=== PATIENT | female | born 1990 | race Caucasian/White ===

== ENCOUNTER 2017-07-03 07:32 | Emergency (ER) | payer MEDICAID ==
[2017-07-03] MEDS ORDERED: Dextrose 5%-0.9% NaCl 1,000 ML IV SCH (08:00)
[2017-07-03] MEDS ORDERED: Ketorolac 30 MG/ML SDV IVPUSH SCH (08:00)
--- NOTE | 2017-07-03 08:04 | EDM.PDOC ---
ED HPI GENERAL MEDICAL PROBLEM - General Chief Complaint: Respiratory Problem Stated Complaint: COUGH/NAUSEA/DIZZY Time Seen by Provider: 07/03/17 07:59 Source of Information: Reports: Patient History Limitations: Reports: No Limitations - History of Present Illness INITIAL COMMENTS - FREE TEXT/NARRATIVE: 27-year-old female presents the ED with acute onset of illness 2-1/2 days ago with fever chills headache and initially some loose watery diarrhea which cleared within about 12 hours. She has diffuse myalgia. She's been using ibuprofen Mucinex and cough drops. Has a paroxysmal cough minimally productive. Did not have a flu shot. She denies possibility of . She's lightheaded and dizzy and very weak. Hilario poor appetite. Onset: Sudden Onset Date: 07/01/17 Duration: Day(s):, Constant Location: Reports: Chest (Paroxysmal nonproductive cough), Generalized Quality: Reports: Ache Severity: Moderate (Primarily that of headache with.diffuse myalgia.) Improves with: Reports: Medication Worsens with: Denies: None, Breathing, Cold Therapy, Heat Therapy, Immobilization, Medication, Rest, Other, Movement Context: Denies: Activity, Exercise, Lifting, Sick Contact, Trauma, Other Associated Symptoms: Reports: Chest Pain, Cough (From coughing.), Fever/Chills, Headaches, Loss of Appetite, Malaise, Shortness of Breath, Syncope, Other (Very lightheaded and dizzy when standing). 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 History: hx of deliveries, hx of herpes - Past Surgical History Female Surgical History: Reports: Tubal Ligation Social & Family History - Tobacco Use Smoking Status *Q: Never Smoker Second Hand Smoke Exposure: No - Caffeine Use Caffeine Use: Reports: Coffee, Soda - Recreational Drug Use Recreational Drug Use: No - Living Situation & Occupation Living situation: Reports: Single Occupation: Unemployed ED ROS GENERAL - Review of Systems Review Of Systems: See Below Constitutional: Reports: Fever, Malaise, Weakness, Fatigue, Diaphoresis, Decreased Appetite HEENT: Reports: No Symptoms, Throat Pain Respiratory: Reports: Shortness of Breath, Cough. Denies: Wheezing, Pleuritic Chest Pain, Sputum, Hemoptysis, Other Cardiovascular: Reports: No Symptoms Endocrine: Reports: Fatigue GI/Abdominal: Reports: Anorexia, Diarrhea (Diarrhea initial onset of illness for about 12 hours but then quit.) : Reports: No Symptoms Musculoskeletal: Reports: Muscle Pain Skin: Reports: No Symptoms Neurological: Reports: No Symptoms (Generalized myalgia.) Psychiatric: Reports: No Symptoms Hematologic/Lymphatic: Reports: No Symptoms Immunologic: Reports: No Symptoms ED EXAM, GENERAL - Physical Exam Exam: See Below Exam Limited By: No Limitations General Appearance: Alert, WD/WN, No Apparent Distress, Other (Slightly warm to palpation.) Eye Exam: Bilateral Eye: Normal Inspection Ears: Normal TMs Throat/Mouth: Normal Inspection, Normal Lips, Normal Teeth, Normal Gums, Normal Oropharynx Head: Atraumatic, Normocephalic Neck: Normal Inspection, Supple, Non-Tender, Full Range of Motion. No: Lymphadenopathy (L), Lymphadenopathy (R) Respiratory/Chest: No Respiratory Distress, Lungs Clear, Normal Breath Sounds, Chest Non-Tender Cardiovascular: Normal Peripheral Pulses, No Edema, No Murmur, No Rub, Tachycardia. No: Systolic Murmur Peripheral Pulses: 2+: Posterior Tibial (L), Posterior Tibial (R), Dorsalis Pedis (L), Dorsalis Pedis (R) GI/Abdominal: Normal Bowel Sounds, Soft, Non-Tender, No Organomegaly, No Abnormal Bruit, No Mass, Pelvis Stable Back Exam: Normal Inspection, Full Range of Motion Extremities: Normal Inspection, Normal Range of Motion, Non-Tender, Normal Capillary Refill Neurological: Alert, Oriented, CN II-XII Intact, Normal Cognition, Normal Gait Psychiatric: Normal Affect, Normal Mood Skin Exam: Warm, Dry, Intact, Normal Color, No Rash Course - Vital Signs Last Recorded V/S: Last Vital Signs Temp 37.2 C 11/30/17 07:44 Pulse 118 H 07/03/17 07:44 Resp 18 07/03/17 07:44 BP 151/81 H 07/03/17 07:44 Pulse Ox 99 07/03/17 07:44 Orthostatic Blood Pressure [ 148/80 Standing] Orthostatic Blood Pressure [ 151/86 Sitting] Orthostatic Blood Pressure [ 139/77 Supine] - Orders/Labs/Meds Orders: Active Orders 24 hr Category Date Time Status Orthostatic Vital Signs [RC] ASDIRECTED Care 07/03/17 07:59 Active Dextrose 5%-0.9% NaCl [Dextrose 5%-Normal Saline] 1,000 Med 07/03/17 08:00 Active ml IV ASDIRECTED Ketorolac [Toradol] Med 07/03/17 08:00 Active 30 mg IVPUSH ONETIME Medication Orders Dextrose/Sodium Chloride (Dextrose 5%-Normal Saline) 1,000 mls @ 999 mls/hr IV ASDIRECTED ISRRAEL Last Admin: 07/03/17 08:16 Dose: 999 mls/hr Ketorolac Tromethamine (Toradol) 30 mg IVPUSH ONETIME ISRRAEL Last Admin: 07/03/17 08:15 Dose: 30 mg Meds: Medications Generic Name Dose Route Start Last Admin Trade Name Freq PRN Reason Stop Dose Admin Dextrose/Sodium Chloride 1,000 mls @ 999 mls/hr 07/03/17 08:00 07/03/17 08:16 Dextrose 5%-Normal Saline IV 999 mls/hr ASDIRECTED ISRRAEL Administration Ketorolac Tromethamine 30 mg 07/03/17 08:00 07/03/17 08:15 Toradol IVPUSH 30 mg ONETIME ISRRAEL Administration - Radiology Interpretation Free Text/Narrative:: 27-year-old female presents the ED with a 2-1/2 day history of illness. Sudden onset of fever chills headache diffuse myalgia paroxysmal nonproductive cough. Is initially she did have some diarrhea for about 12 hours but this is since past. Left her with very poor appetite. She's lightheaded dizzy with standing. She is found to have a resting tachycardia of 120s. Afebrile at the time of my examination. Her nose and throat examination showed no definitive infective process. Does a very harsh paroxysmal cough. Clinically she is suffering from influenza. Influence a screen will be done. She appears to be mildly volume depleted. She will have an IV of D5 normal saline started to run at open. Toradol 30 mg IV for pain and myalgia relief. - Re-Assessments/Exams Free Text/Narrative Re-Assessment/Exam: 07/03/17 09:04 influenza screen came back negative. Therefore one view chest x- ray will be obtained to rule out pneumonia. 07/03/17 10:16 chest x-ray one view is also negative for any signs of pneumonia. Therefore illness appears to be viral and likely is that of parainfluenza infection. 07/03/17 10:57 patient is feeling improved after liter of IV fluids. Clinically she probably has a parainfluenza virus since influenza screen came back negative and she has many signs and symptoms of influenza. I'm going to simply treat her with Motrin 600 mg every 6 hours as needed for fever and body aches and headache. Fluids to be Gatorade Powerade and advance to soup broth and soups until feeling better. Tussionex cough syrup 5 mils every 12 hours as needed for cough relief. Expect marked improvement over the next 48 hours. If not she should be reviewed. Departure - Departure Time of Disposition: 10:58 Disposition: Home, Self-Care 01 Condition: Fair Clinical Impression: Parainfluenza virus bronchitis - Discharge Information Prescriptions: Hydrocodone/Chlorphen P-Stirex [Tussionex Pennkinetic Susp] 5 ml PO Q12H PRN # 60 ml PRN Reason: Cough relief Referrals: Katherine Grimaldo MD [Primary Care Provider] - Forms: ED Department Discharge Additional Instructions: Evaluation the emergency room today in regards to development of upper respiratory tract infection with sore throat headache generalized body ache and paroxysmal with [place] productive cough over the last 2 and half days. These are all the signs and symptoms of influenza which is beginning to hit our community. Influenza screen in you turned out to be negative today. A chest x- ray was therefore done and does not show any evidence of pneumonia. You're treated with a liter of IV fluids in the emergency room and Toradol intravenously to relieve some of the body ache and headache. It clinically you probably have the parainfluenza virus which often shows up 2 or 3 weeks before influenza. It mimics influenza but tends not to be quite as severe. Treatment is continue Motrin 600 mg every 6 hours as needed for relief of fever and body aches and headache. Diet as tolerated including plenty of fluids such as Gatorade or Powerade to maintain hydration. May use cough syrup Tussionex 5 mils every 12 hours as necessary for cough relief. He takes about a good hour to work so take a good hour before planning to go to bed. Expect marked improvement over the next 48 hours. Although cough will probably last the better part of 2 weeks. - My Orders Last 24 Hours: My Active Orders 07/03/17 07:59 Orthostatic Vital Signs [RC] ASDIRECTED 07/03/17 08:00 Dextrose 5%-0.9% NaCl [Dextrose 5%-Normal Saline] 1,000 ml IV ASDIRECTED Ketorolac [Toradol] 30 mg IVPUSH ONETIME - Assessment/Plan Last 24 Hours: My Active Orders 07/03/17 07:59 Orthostatic Vital Signs [RC] ASDIRECTED 07/03/17 08:00 Dextrose 5%-0.9% NaCl [Dextrose 5%-Normal Saline] 1,000 ml IV ASDIRECTED Ketorolac [Toradol] 30 mg IVPUSH ONETIME
[2017-07-03] MEDS ORDERED: Ketorolac 30 MG/ML SDV ONE (08:12)
[2017-07-03] MEDS ORDERED: Dextrose 5%-0.9% NaCl 1,000 ML ONE (08:13)
--- NOTE | 2017-07-03 10:08 | CR ---
Chest: Portable view of the chest was obtained. Comparison: No prior chest x-ray. Heart size and mediastinum are normal. Lungs are clear. Bony structures are grossly intact. Impression: 1. Nothing acute is identified on portable chest x-ray. Diagnostic code #1
[2017-07-03 11:16] VITALS: BP 122/74
== END 2017-07-03 11:10 | disposition home or self-care (01) ==
LOC: JD.ED 07:32
DX: J20.4 Acute bronchitis due to parainfluenza virus (principal); Z91.030 Bee allergy status
CPT/HCPCS: 71010; 87804; 96361; 96374; 99284; J1885; J7042

== ENCOUNTER 2019-07-14 05:01 | Emergency (ER) | payer MEDICAID ==
[2019-07-14 05:16] VITALS: BP 128/85; PULSE 84
--- NOTE | 2019-07-14 05:47 | EDM.PDOC ---
ED HPI GENERAL MEDICAL PROBLEM - General Chief Complaint: Abdominal Pain Stated Complaint: BLEEDING AND ABDOMINAL PAIN Time Seen by Provider: 07/14/19 05:15 Source of Information: Reports: Patient, RN Notes Reviewed - History of Present Illness INITIAL COMMENTS - FREE TEXT/NARRATIVE: 29-year-old female comes in with lower abdominal pain. She's been having this off and on for about a month. She states yesterday was a good day and she was relatively pain free. Upon awakening about an hour and a half ago she was once again having lower abdominal discomfort. She does get occasional sharp cramps. She has been having frequent "loose diarrhea" but not watery. She has had occasional nausea but no vomiting. She was seen at the walk-in clinic about 5 days ago and was not found to have an acute abdomen at that time. She also has been having "heavy vaginal bleeding for about the past 3 days with some clots. That continues this morning. She does have history of tubal ligation several years ago. 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, hx of herpes Endocrine/Metabolic History: Reports: Hypothyroidism - Past Surgical History Female Surgical History: Reports: Tubal Ligation Endocrine Surgical History: Reports: Thyroidectomy Social & Family History - Family History Family Medical History: Noncontributory - Tobacco Use Smoking Status *Q: Never Smoker Second Hand Smoke Exposure: No - Caffeine Use Caffeine Use: Reports: Coffee - Recreational Drug Use Recreational Drug Use: No - Living Situation & Occupation Living situation: Reports: Single Occupation: Unemployed ED ROS GENERAL - Review of Systems Review Of Systems: See Below Constitutional: Denies: Fever, Chills HEENT: Reports: No Symptoms Respiratory: Denies: Shortness of Breath Cardiovascular: Denies: Chest Pain GI/Abdominal: Reports: Abdominal Pain, Diarrhea, Nausea. Denies: Hematochezia, Melena, Vomiting : Reports: Frequency, Other (heavy menstrual bleeding with clots for the last 3 days). Denies: Dysuria, Urgency Musculoskeletal: Denies: Back Pain Skin: Reports: No Symptoms Neurological: Reports: No Symptoms ED EXAM, GI/ABD - Physical Exam Exam: See Below General Appearance: Alert, No Apparent Distress Eyes: Bilateral: Normal Appearance Throat/Mouth: Normal Inspection, Normal Oropharynx Head: Atraumatic Neck: Supple Respiratory/Chest: No Respiratory Distress, Lungs Clear, Normal Breath Sounds Cardiovascular: Regular Rate, Rhythm GI/Abdominal Exam: Soft, Tender (mild tenderness entire lower abd and pelvis, upper abd and mid abd nontender). No: Guarding, Rebound (Female) Exam: Normal External Exam, Vaginal Bleeding (moderate amt of dark blood post vag. vault, no clots at this time). No: Adnexal Mass, Adnexal Tenderness Back Exam: No: CVA Tenderness (L), CVA Tenderness (R) Neurological: Alert, Oriented, No Motor/Sensory Deficits Skin Exam: Warm, Dry, Normal Color Course - Vital Signs Last Recorded V/S: Last Vital Signs Temp 97.3 F 07/14/19 05:12 Pulse 84 07/14/19 05:12 Resp 18 07/14/19 05:12 BP 128/85 07/14/19 05:12 Pulse Ox 100 07/14/19 05:12 - Orders/Labs/Meds Labs: Laboratory Tests 07/14/19 07/14/19 07/14/19 Range/Units 05:52 05:52 05:52 WBC 6.02 (3.98-10.04) K/mm3 RBC 4.45 (3.98-5.22) M/mm3 Hgb 12.3 (11.2-15.7) gm/dl Hct 37.8 (34.1-44.9) % MCV 84.9 D (79.4-94.8) fl MCH 27.6 (25.6-32.2) pg MCHC 32.5 (32.2-35.5) g/dl RDW Std Deviation 41.1 (36.4-46.3) fL Plt Count 316 D (182-369) K/mm3 MPV 10.4 (9.4-12.3) fl Neut % (Auto) 57.8 (34.0-71.1) % Lymph % (Auto) 30.7 (19.3-51.7) % [place] % (Auto) 7.8 (4.7-12.5) % Eos % (Auto) 2.7 (0.7-5.8) Baso % (Auto) 0.8 (0.1-1.2) % Neut # (Auto) 3.48 (1.56-6.13) K/mm3 Lymph # (Auto) 1.85 (1.18-3.74) K/mm3 [place] # (Auto) 0.47 H (0.24-0.36) K/mm3 Eos # (Auto) 0.16 (0.04-0.36) K/mm3 Baso # (Auto) 0.05 (0.01-0.08) K/mm3 Sodium 139 (136-145) mEq/L Potassium 3.6 (3.5-5.1) mEq/L Chloride 103 (98-107) mEq/L Carbon Dioxide 26 (21-32) mEq/L Anion Gap 13.6 (5-15) BUN 12 (7-18) mg/dL Creatinine 0.8 (0.55-1.02) mg/dL Est Cr Clr Drug Dosing 79.00 mL/min Estimated GFR (MDRD) > 60 (>60) mL/min BUN/Creatinine Ratio 15.0 (14-18) Glucose 96 (74-106) mg/dL Calcium 8.6 (8.5-10.1) mg/dL Total Bilirubin 0.3 (0.2-1.0) mg/dL AST 16 (15-37) U/L ALT 24 (14-59) U/L Alkaline Phosphatase 58 (46-116) U/L C-Reactive Protein 0.4 (<1.0) mg/dL Total Protein 7.6 (6.4-8.2) g/dl Albumin 3.8 (3.4-5.0) g/dl Globulin 3.8 gm/dL Albumin/Globulin Ratio 1.0 (1-2) HCG, Qual (NEGATIVE) Urine Color (Yellow) Urine Appearance (Clear) Urine pH (5.0-8.0) Ur Specific [place] (1.005-1.030) Urine Protein (Negative) Urine Glucose (UA) (Negative) Urine Ketones (Negative) Urine Occult Blood (Negative) Urine Nitrite (Negative) Urine Bilirubin (Negative) Urine Urobilinogen (0.2-1.0) Ur Leukocyte Esterase (Negative) Urine RBC (0-5) /hpf Urine WBC (0-5) /hpf Ur Squamous Epith Cells (0-5) /hpf Urine Bacteria (FEW) /hpf Urine Mucus (FEW) /hpf 07/14/19 07/14/19 Range/Units 05:52 06:24 WBC (3.98-10.04) K/mm3 RBC (3.98-5.22) M/mm3 Hgb (11.2-15.7) gm/dl Hct (34.1-44.9) % MCV (79.4-94.8) fl MCH (25.6-32.2) pg MCHC (32.2-35.5) g/dl RDW Std Deviation (36.4-46.3) fL Plt Count (182-369) K/mm3 MPV (9.4-12.3) fl Neut % (Auto) (34.0-71.1) % Lymph % (Auto) (19.3-51.7) % [place] % (Auto) (4.7-12.5) % Eos % (Auto) (0.7-5.8) Baso % (Auto) (0.1-1.2) % Neut # (Auto) (1.56-6.13) K/mm3 Lymph # (Auto) (1.18-3.74) K/mm3 [place] # (Auto) (0.24-0.36) K/mm3 Eos # (Auto) (0.04-0.36) K/mm3 Baso # (Auto) (0.01-0.08) K/mm3 Sodium (136-145) mEq/L Potassium (3.5-5.1) mEq/L Chloride (98-107) mEq/L Carbon Dioxide (21-32) mEq/L Anion Gap (5-15) BUN (7-18) mg/dL Creatinine (0.55-1.02) mg/dL Est Cr Clr Drug Dosing mL/min Estimated GFR (MDRD) (>60) mL/min BUN/Creatinine Ratio (14-18) Glucose (74-106) mg/dL Calcium (8.5-10.1) mg/dL Total Bilirubin (0.2-1.0) mg/dL AST (15-37) U/L ALT (14-59) U/L Alkaline Phosphatase (46-116) U/L C-Reactive Protein (<1.0) mg/dL Total Protein (6.4-8.2) g/dl Albumin (3.4-5.0) g/dl Globulin gm/dL Albumin/Globulin Ratio (1-2) HCG, Qual Negative (NEGATIVE) Urine Color [place] H (Yellow) Urine Appearance Slt cloudy H (Clear) Urine pH 7.0 (5.0-8.0) Ur Specific [place] 1.020 (1.005-1.030) Urine Protein Negative (Negative) Urine Glucose (UA) Negative (Negative) Urine Ketones Negative (Negative) Urine Occult Blood 3+ H (Negative) Urine Nitrite Negative (Negative) Urine Bilirubin Negative (Negative) Urine Urobilinogen 0.2 (0.2-1.0) Ur Leukocyte Esterase Trace H (Negative) Urine RBC >100 H (0-5) /hpf Urine WBC 10-20 H (0-5) /hpf Ur Squamous Epith Cells 0-5 (0-5) /hpf Urine Bacteria Moderate H (FEW) /hpf Urine Mucus Not seen (FEW) /hpf Departure - Departure Time of Disposition: 07:04 Disposition: Home, Self-Care 01 Condition: Fair Clinical Impression: UTI (urinary tract infection), Diarrhea, Menorrhagia - Discharge Information Prescriptions: Nitrofurantoin Monohyd/M-Cryst [Macrobid 100 mg Capsule] 100 mg PO BID #10 capsule Referrals: Jennifer Whitney MD [Primary Care Provider] - Forms: ED Department Discharge, ED Return to Work/School Form Additional Instructions: Rest, continue to drink plenty of water to maintain hydration, Macrobid 100 mg twice daily for 5 days, prescription has been sent electronically to in the pharmacy., Clear liquids and bland diet as tolerated, probiotic twice daily. Follow-up with Modesta Whitney Friday as planned, return to ED as needed. Sepsis Event Note - Evaluation Sepsis Screening Result: No Definite Risk - Focused Exam Vital Signs: Vital Signs Temp Pulse Resp BP Pulse Ox 07/14/19 05:12 97.3 F 84 18 128/85 100 Date Exam was Performed: 07/14/19 Time Exam was Performed: 07:11
== END 2019-07-14 07:19 | disposition home or self-care (01) ==
LOC: JD.ED 05:01
DX: N92.0 Excessive and frequent menstruation with regular cycle (principal); N39.0 Urinary tract infection, site not specified; R19.7 Diarrhea, unspecified; E03.9 Hypothyroidism, unspecified; Z91.030 Bee allergy status; Z79.899 Other long term (current) drug therapy
CPT/HCPCS: 36415; 80053; 81001; 84703; 85025; 86140; 99283; 99284